=== PATIENT | female | born 1980 | race Caucasian/White ===

== ENCOUNTER 2019-09-25 17:27 | Inpatient (IN) | payer MEDICAID ==
[2019-09-25] MEDS ORDERED: RINGERS SOLUTION,LACTATED 1,000 ML IV ONE (18:50)
[2019-09-25] MEDS ORDERED: MORPHINE SULFATE 10 MG/ML INJ IV ONE (18:50)
[2019-09-25] MEDS ORDERED: ACETAMINOPHEN 325 MG TABLET PO ONE (18:50)
--- NOTE | 2019-09-25 18:51 | ER Document Report ---
ED GI/ - General Stated Complaint: ABDOMINAL PAIN Time Seen by Provider: 09/25/19 18:19 Mode of Arrival: Ambulatory Information source: Patient Notes: 39-year-old female past medical history significant for kidney stones, cervical and colorectal cancer finished chemo in April presents to the to the emergency room complaining of right lower abdominal pain for the past 4 days. Describes it as sharp and cramping. States pain has gotten worse since yesterday. Subjective fever. Was taking Naprosyn without relief. Also states that she has been having very small bowel movements for the past 4 days. Tried Colace and Epson wash without relief. Denies any nausea, vomiting, no urinary symptoms. No recent travel. No COVID-19 exposure. TRAVEL OUTSIDE OF THE [place] IN LAST 30 DAYS: No - Related Data Allergies/Adverse Reactions: No Known Allergies Allergy (Verified 09/25/19 19:49) Past Medical History - General Information source: Patient - Social History Smoking Status: Current Every Day Smoker Frequency of alcohol use: Occasional Drug Abuse: None Family History: Reviewed & Not Pertinent Malignancy Medical History: Reports: Hx Cervical Cancer, Hx Colorectal Cancer Review of Systems - Review of Systems Constitutional: Fever EENT: No symptoms reported Cardiovascular: No symptoms reported Respiratory: No symptoms reported Gastrointestinal: Abdominal pain, Constipation. denies: Nausea, Vomiting Female Genitourinary: No symptoms reported Musculoskeletal: No symptoms reported Skin: No symptoms reported Neurological/Psychological: No symptoms reported -: Yes All other systems reviewed and negative Physical Exam - Vital signs Vitals: Temp Pulse Resp BP Pulse Ox 102.2 F H 105 H 17 105/54 L 99 09/25/19 17:36 09/25/19 17:36 09/25/19 17:36 09/25/19 17:36 09/25/19 17:36 - General General appearance: Other - Ill-appearing In distress: Moderate - Respiratory Respiratory status: No respiratory distress Chest status: Nontender Breath sounds: Normal Chest palpation: Normal - Cardiovascular Rhythm: Tachycardia Heart sounds: Normal auscultation Murmur: No Friction rub: No - Abdominal Inspection: Normal Distension: No distension Bowel sounds: Hypoactive Tenderness: Tender - Generalized tenderness without guarding or rebound.. No: Guarding Organomegaly: No organomegaly - Rectal Tenderness: Yes Stool: Heme negative Hemorrhoids: None - Back Back: Normal, Nontender, CVA tenderness - Bilateral - Neurological Neuro grossly intact: Yes Cognition: Normal Orientation: AAOx4 [place] Coma Scale Eye Opening: Spontaneous [place] Coma Scale Verbal: Oriented [place] Coma Scale Motor: Obeys Commands [place] Coma Scale Total: 15 Speech: Normal Motor strength normal: LUE, RUE, LLE, RLE Sensory: Normal - Skin Skin Temperature: Warm Skin Moisture: Dry Skin Color: Normal Course - Re-evaluation Re-evalutation: 09/25/19 19:40 39-year-old female with cervical and colorectal cancer. Febrile and tachycardic on presentation. IV fluids, labs, CT, meds and reevaluate. 09/25/19 21:39 Patient's resting comfortably with decreased pain. Reviewed all test results with patient. On reexamination patient with more tenderness noted to the right lower quadrant guarding but not rebound. Negative Kevin sign. Aware of need for admission. Patient is agreeable to admission. Will discuss with on-call surgeon and hospitalist. - Vital Signs Vital signs: Temp Pulse Resp BP Pulse Ox 98.6 F 68 18 110/61 99 09/25/19 22:08 09/25/19 22:08 09/25/19 22:08 09/25/19 22:08 09/25/19 22:08 - Laboratory Result Diagrams: 09/25/19 19:15 09/25/19 19:15 Laboratory results interpreted by me: 09/25/19 09/25/19 09/25/19 19:15 19:15 19:15 WBC 15.9 H RBC 3.62 L Hgb 9.9 L Hct 29.7 L RDW 18.4 H Seg Neuts % (Manual) 89 H Lymphocytes % (Manual) 7 L Abs Neuts (Manual) 14.2 H Sodium 132.3 L Potassium 3.1 L Lactic Acid 0.6 L Calcium 8.0 L AST 114 H ALT 102 H Alkaline Phosphatase 238 H Total Protein 6.2 L Albumin 2.8 L Amylase Urine Protein Urine Ketones Urine Blood Ur Leukocyte Esterase 09/25/19 09/25/19 19:15 20:00 WBC RBC Hgb Hct RDW Seg Neuts % (Manual) Lymphocytes % (Manual) Abs Neuts (Manual) Sodium Potassium Lactic Acid Calcium AST ALT Alkaline Phosphatase Total Protein Albumin Amylase < 30 L Urine Protein 100 H Urine Ketones TRACE H Urine Blood SMALL H Ur Leukocyte Esterase MODERATE H - Consults Dr. Santiago Time consulted: 21:41 Reason for consultation: 09/25/19 22:[address] findings of proctocolitis, inflammatory ap pendix. We will see patient as inpatient. Patient will be admitted to medicine. 09/25/19 22:07 Consulted provider: will see as inpatient Dr. Desouza Time consulted: 21:46 Reason for consultation: 09/25/19 22:06 Admission for acute proctocolitis, fluid-filled colon, inflammatory appendicitis. Aware that I have spoken with on-call surgeon Dr. Santiago who will consult on patient. Consulted provider: will see as inpatient Discharge - Discharge Clinical Impression: Proctocolitis Anemia Qualifiers: Anemia type: unspecified type Qualified Code(s): D64.9 - Anemia, unspecified Leukocytosis Qualifiers: Leukocytosis type: unspecified Qualified Code(s): D72.829 - Elevated white blood cell count, unspecified Fever Qualifiers: Fever type: due to other condition Qualified Code(s): R50.81 - Fever presenting with conditions classified elsewhere Condition: Stable Disposition: ADMITTED INPATIENT Admitting Provider: Deo (Hospitalist) Unit Admitted: Medical Floor
[2019-09-25 19:54] LABS: HEMATOCRIT 29.7 % (36.0-47.0); HEMOGLOBIN 9.9 g/dL (12.0-15.5); MEAN CORPUSCULAR HEMOGLOBIN 27.4 pg (27.0-33.4); MEAN CORPUSCULAR HGB CONC 33.4 g/dL (32.0-36.0); MEAN CORPUSCULAR VOLUME 82 fl (80-97); PLATELET COUNT 301 10^3/uL (150-450); RED BLOOD COUNT 3.62 10^6/uL (3.72-5.28); RED CELL DISTRIBUTION WIDTH 18.4 % (11.5-14.0); WHITE BLOOD COUNT 15.9 10^3/uL (4.0-10.5)
[2019-09-25 20:13] LABS: ALBUMIN 2.8 g/dL (3.5-5.0); ALKALINE PHOSPHATASE 238 U/L (38-126); ANION GAP 7 (5-19); ASPARTATE AMINO TRANSFERASE 114 U/L (14-36); BILIRUBIN,DIRECT 0.3 mg/dL (0.0-0.4); BILIRUBIN,TOTAL 0.8 mg/dL (0.2-1.3); BLOOD UREA NITROGEN 10 mg/dL (7-20); CARBON DIOXIDE 23 mmol/L (22-30); CHLORIDE 102 mmol/L (98-107); GLUCOSE 100 mg/dL (75-110); POTASSIUM 3.1 mmol/L (3.6-5.0); TOTAL PROTEIN 6.2 g/dL (6.3-8.2)
[2019-09-25] MEDS ORDERED: POTASSIUM CHLORIDE 10 MEQ TABLET.ER PO ONE (20:21)
[2019-09-25 20:24] LABS: ABSOLUTE LYMPHOCYTES# (MANUAL) 1.1 10^3/uL (0.5-4.7); ABSOLUTE MONOCYTES # (MANUAL) 0.6 10^3/uL (0.1-1.4); BASOPHILS % (MANUAL) 0 % (0-2); EOSINOPHILS % (MANUAL) 0 % (0-6); LYMPHOCYTES % (MANUAL) 7 % (13-45); MONOCYTES % (MANUAL) 4 % (3-13); PLATELET COMMENT ADEQUATE; SEGMENTED NEUTROPHILS % (MAN) 89 % (42-78); TOTAL CELLS COUNTED 100
[2019-09-25 20:24] LABS: APPEARANCE,URINE CLOUDY; BILIRUBIN,URINE NEGATIVE (NEGATIVE); GLUCOSE, URINE NEGATIVE (NEGATIVE); KETONES,URINE TRACE mg/dL (NEGATIVE); LEUKOCYTE ESTERASE,URINE MODERATE (NEGATIVE); NITRITE,URINE NEGATIVE (NEGATIVE); PROTEIN,URINE 100 mg/dL (NEGATIVE); URINE SPECIFIC GRAVITY 1.024; UROBILINOGEN,URINE NEGATIVE mg/dL (<2.0)
[2019-09-25 20:25] LABS: ANISOCYTOSIS 1+
[2019-09-25 20:26] LABS: OVALOCYTES SLIGHT; POLYCHROMASIA SLIGHT
[2019-09-25 20:28] LABS: COLOR,URINE YELLOW
--- NOTE | 2019-09-25 21:04 | RADIOLOGY REPORT (SQ) ---
CT ABDOMEN PELVIS WITH IV CONTRAST HISTORY: Right lower quadrant pain. COMPARISON: None. TECHNIQUE: CT scan of the abdomen and pelvis was performed with IV contrast. This exam was performed according to our departmental dose-optimization program, which includes automated exposure control, adjustment of the mA and/or kV according to patient size and/or use of iterative reconstruction technique. FINDINGS: Mild scarring in the right lower lobe. No pleural or pericardial effusions. There is no hiatal hernia. Gallstones are seen without inflammatory changes. There is no splenomegaly. The pancreas, adrenal glands, and left kidney are unremarkable. There is mild right hydroureter likely due to inflammation in the lower quadrant. There is diffuse circumferential wall thickening with hyperenhancement predominantly involving the sigmoid colon. There is diffuse surrounding mesenteric stranding and mild free fluid. No free air is seen. The colon is fluid-filled, suggesting a diarrheal illness. The appendix is dilated, which may be due to the surrounding inflammation. The aorta is normal in caliber. No acute bony findings are seen. No abnormal body wall hernia. IMPRESSION: 1. Findings consistent with acute proctocolitis involving the sigmoid colon, which may be infectious or inflammatory in origin. 2. Fluid-filled colon suggestive of a diarrheal illness. 3. Mildly dilated appendix which is likely secondary to surrounding inflammation.
[2019-09-25 21:09] LABS: AMYLASE < 30 U/L (30-110)
[2019-09-25] MEDS ORDERED: PIPERACILLIN/TAZOBACTAM 3.375 GM VIAL IV ONE (21:40)
[2019-09-25] MEDS ORDERED: ACETAMINOPHEN 650 MG SUPP.RECT PR PRN (22:26)
[2019-09-25] MEDS ORDERED: ONDANSETRON HCL INJ/PF 4 MG/2 ML SDV IV PRN (22:26)
[2019-09-25] MEDS ORDERED: LEVALBUTEROL HCL NEB 0.63 MG/3 ML AMPUL NEB PRN (22:26)
[2019-09-25] MEDS ORDERED: LORAZEPAM INJ 2 MG/1 ML VIAL IV PRN (22:35)
[2019-09-25] MEDS ORDERED: MORPHINE SULFATE 10 MG/ML INJ IV PRN ×4 (22:35→23:03)
[2019-09-25] MEDS ORDERED: NICOTINE 21 MG/24 HR PATCH.TD24 TD PRN (22:35)
[2019-09-25] MEDS ORDERED: CEFEPIME 2 GM/D5W RTU 2 GM/50 ML RTUPB IV ONE (23:15)
[2019-09-25] MEDS ORDERED: FAMOTIDINE INJ/PF 20 MG/2 ML SDV IV ONE (23:15)
[2019-09-26] MEDS: POTASSI CL 20 MEQ/50 ML RIDER 20 MEQ/50 ML RTUPB IV SCH ×2 (01:00→03:00)
--- NOTE | 2019-09-26 01:28 | PDOC H&P ---
History of Present Illness Admission Date/PCP: 09/25/2019 22:00 No local PCP Patient complains of: Abdominal pain History of Present Illness: TATUM SIMMONS is a 39 year old female who presented to the emergency room with a 4-day history of abdominal pain. She admits the gradual development and progressive worsening of right lower quadrant and right flank pain over the course of the last 4 days. Her pain has become moderately severe, constant and is of a sharp colicky nature. Her pain has been associated with obstipation and accompanied by a subjective fever. She denies other associated or accompanying signs and symptoms. She tried using Colace and Epsom salts for her obstipation at home without any improvement. She admits prior similar episodes with previous nephrolithiasis. She has not identified any aggravating or ameliorating factors for her abdominal pain. In the emergency room she was found to have a fever of 102.2 F, a heart rate of 105, a white blood count of 15,900 and mildly elevated liver function tests. A CT of her abdomen and pelvis revealed a sigmoid proctocolitis and a dilated appendix with periappendiceal inflammatory changes. The emergency room provider consulted Dr. Santiago for surgery who asked that the patient be admitted by the hospitalists, and he would further evaluate her in the morning. Patient was subsequently admitted to the medical floor for further evaluation and treatment. Past Medical History Cardiac Medical History: Denies: Coronary Artery Disease, DVT, Hypertension, Pulmonary Embolism Pulmonary Medical History: Reports: Asthma Denies: Chronic Obstructive Pulmonary Disease (COPD) EENT Medical History: Denies: Cataracts, Ears - Hearing aids Neurological Medical History: Denies: Hemorrhagic CVA, Ischemic CVA, Multiple Sclerosis, Seizures Endocrine Medical History: Reports: Other - Hypoglycemia Denies: Diabetes Mellitus Type 1, Diabetes Mellitus Type 2, Hyperthyroidism, Hypothyroidism, Obesity Renal/ Medical History: Reports: Nephrolithiasis Denies: Chronic Kidney Disease Malignancy Medical History: Reports: Cervical Cancer, Colorectal Cancer Malignancy History Note: Patient states that she finished chemotherapy for cervical cancer and colorectal cancer in April 2019. GI Medical History: Denies: Cirrhosis, Crohn's Disease, Gastroesophageal Reflux Disease, H epatitis, Peptic Ulcer Disease, Ulcerative Colitis Musculoskeltal Medical History: Denies: Arthritis, Fibromyalgia Skin Medical History: Denies: Eczema, Psoriasis Psychiatric Medical History: Reports: Tobacco Dependency Denies: Alcohol Dependency, Substance Abuse Traumatic Medical History: Reports: None Hematology: Reports: Anemia Denies: Bleeding Tendencies Infectious Medical History: Reports: None Past Surgical History Past Surgical History: Reports: Tonsillectomy, Other - Left tube nephrostomy, c olonoscopy with polypectomy Social History Information Source: Patient Lives with: Alone Smoking Status: Current Every Day Smoker Cigarettes Packs Per Day: 0.2 Electronic Cigarette use?: No Frequency of Alcohol Use: Rare Hx Recreational Drug Use: No Drugs: None Hx Prescription Drug Abuse: No - Advance Directive Resuscitation Status: Full Code Surrogate healthcare decision maker:: Perri Gisela Family History Family History: CAD, Hyperlipidemia, Hypertension, Malignancy, Other - Valvular heart disease. denies: DM Parental Family History Reviewed: Yes Children Family History Reviewed: No Sibling(s) Family History Reviewed.: Yes Medication/Allergy Allergies/Adverse Reactions: No Known Allergies Allergy (Verified 09/25/19 19:49) Review of Systems Constitutional: PRESENT: as per HPI, fever(s). ABSENT: chills Eyes: ABSENT: visual disturbances, other - Eye pain Ears: ABSENT: hearing changes, other - Ear pain Nose, Mouth, and Throat: ABSENT: headache(s), sore throat Cardiovascular: ABSENT: chest pain, palpitations Respiratory: ABSENT: cough, dyspnea Gastrointestinal: PRESENT: as per HPI, abdominal pain, constipation - With obstipation. ABSENT: diarrhea, nausea, vomiting Genitourinary: ABSENT: dysuria, hematuria Musculoskeletal: ABSENT: joint swelling, muscle weakness Integumentary: ABSENT: pruritus, rash Neurological: ABSENT: confusion, convulsions, focal weakness, memory loss, syncope Psychiatric: ABSENT: anxiety, depression Endocrine: ABSENT: cold intolerance, heat intolerance Hematologic/Lymphatic: ABSENT: easy bleeding, easy bruising Allergic/Immunologic: ABSENT: seasonal rhinorrhea Physical Exam Vital Signs: Temp Pulse Resp BP Pulse Ox 98.7 F 105 H 17 105/54 L 99 09/25/19 20:59 09/25/19 17:36 09/25/19 17:36 09/25/19 17:36 09/25/19 17:36 Intake & Output 09/23/19 09/24/19 09/25/19 23:59 23:59 23:59 Intake Total 1000 Balance 1000 Weight 79.379 kg General appearance: PRESENT: cooperative, mild distress - Secondary to abdominal pain Head exam: PRESENT: atraumatic, normocephalic Eye exam: PRESENT: conjunctiva pink. ABSENT: conjunctival injection, scleral icterus Ear exam: PRESENT: normal external ear exam. ABSENT: bleeding, drainage Mouth exam: PRESENT: dry mucosa, neck supple Neck exam: ABSENT: thyromegaly, tracheal deviation Respiratory exam: PRESENT: clear to auscultation stan, symmetrical, unlabored Cardiovascular exam: PRESENT: RRR. ABSENT: clicks, gallop, rubs Pulses: PRESENT: normal radial pulses, normal dorsalis pedis pul Vascular exam: PRESENT: normal capillary refill. ABSENT: pallor GI/Abdominal exam: PRESENT: hypoactive bowel sounds, soft, tenderness - Generalized moderate to severe tenderness in the lower abdomen and right anterior flank on palpation Rectal exam: PRESENT: deferred Extremities exam: ABSENT: joint swelling, pedal edema Musculoskeletal exam: ABSENT: deformity, dislocation Neurological exam: PRESENT: alert, oriented to person, oriented to place, oriented to time, oriented to situation, CN II-XII grossly intact. ABSENT: motor sensory deficit Psychiatric exam: PRESENT: appropriate affect, normal mood Skin exam: PRESENT: dry, intact, warm. ABSENT: jaundice, rash, urticaria Results Laboratory Results: 09/25/19 19:15 09/25/19 19:15 09/25/19 09/25/19 09/25/19 19:15 19:15 19:15 WBC 15.9 H RBC 3.62 L Hgb 9.9 L Hct 29.7 L MCV 82 MCH 27.4 MCHC 33.4 RDW 18.4 H Plt Count 301 Seg Neutrophils % Not Reportable Sodium 132.3 L Potassium 3.1 L Chloride 102 Carbon Dioxide 23 Anion Gap 7 BUN 10 Creatinine 0.86 Est GFR ( Amer) > 60 Glucose 100 Lactic Acid 0.6 L Calcium 8.0 L Magnesium Total Bilirubin 0.8 AST 114 H Alkaline Phosphatase 238 H Total Protein 6.2 L Albumin 2.8 L Amylase Lipase Serum HCG, Qual Urine Color Urine Appearance Urine pH Ur Specific [place] Urine Protein Urine Glucose (UA) Urine Ketones Urine Blood Urine Nitrite Ur Leukocyte Esterase Urine WBC (Auto) Urine RBC (Auto) 09/25/19 09/25/19 09/25/19 19:15 19:15 19:15 WBC RBC Hgb Hct MCV MCH MCHC RDW Plt Count Seg Neutrophils % Sodium Potassium Chloride Carbon Dioxide Anion Gap BUN Creatinine Est GFR ( Amer) Glucose Lactic Acid Calcium Magnesium 2.1 Total Bilirubin AST Alkaline Phosphatase Total Protein Albumin Amylase < 30 L Lipase 68.3 Serum HCG, Qual NEGATIVE Urine Color Urine Appearance Urine pH Ur Specific [place] Urine Protein Urine Glucose (UA) Urine Ketones Urine Blood Urine Nitrite Ur Leukocyte Esterase Urine WBC (Auto) Urine RBC (Auto) 09/25/19 20:00 WBC RBC Hgb Hct MCV MCH MCHC RDW Plt Count Seg Neutrophils % Sodium Potassium Chloride Carbon Dioxide Anion Gap BUN Creatinine Est GFR ( Amer) Glucose Lactic Acid Calcium Magnesium Total Bilirubin AST Alkaline Phosphatase Total Protein Albumin Amylase Lipase Serum HCG, Qual Urine Color YELLOW Urine Appearance CLOUDY Urine pH 5.0 Ur Specific [place] 1.024 Urine Protein 100 H Urine Glucose (UA) NEGATIVE Urine Ketones TRACE H Urine Blood SMALL H Urine Nitrite NEGATIVE Ur Leukocyte Esterase MODERATE H Urine WBC (Auto) 101 Urine RBC (Auto) 20 Impressions: Abdomen/Pelvis CT 09/25/19 18:48 IMPRESSION: 1. Findings consistent with acute proctocolitis involving the sigmoid colon, which may be infectious or inflammatory in origin. 2. Fluid-filled colon suggestive of a diarrheal illness. 3. Mildly dilated appendix which is likely secondary to surrounding inflammation. Assessment and Plan - Diagnosis (1) Proctocolitis Is this a current diagnosis for this admission?: Yes (2) Abnormal computed tomography angiography (CTA) of abdomen and pelvis Is this a current diagnosis for this admission?: Yes (3) Leukocytosis Qualifiers: Leukocytosis type: unspecified Qualified Code(s): D72.829 - Elevated white blood cell count, unspecified Is this a current diagnosis for this admission?: Yes (4) Fever Qualifiers: Fever type: due to other condition Qualified Code(s): R50.81 - Fever presenting with conditions classified elsewhere Is this a current diagnosis for this admission?: Yes (5) History of colorectal cancer Is this a current diagnosis for this admission?: Yes (6) History of cervical cancer Is this a current diagnosis for this admission?: Yes (7) Anemia Qualifiers: Anemia type: unspecified type Qualified Code(s): D64.9 - Anemia, unspecified Is this a current diagnosis for this admission?: Yes (8) Tobacco use disorder, continuous Is this a current diagnosis for this admission?: Yes - Plan Summary Summary: Patient will be admitted to the medical floor where she will receive routine supportive and symptomatic cares. Dr. Santiago has been consulted by the emergency room provider and will see the patient in the morning. She will be kept n.p.o. after midnight. She will receive IV fluids utilizing D5 LR at 167 mL/h. She will receive IV antibiotics utilizing cefepime 2 g IV every 12 hours. She will receive morphine sulfate 2 to 4 mg IV every 2 hours as needed for pain. She will receive Ativan 1 mg IV every 4 hours as needed for anxiety or restlessness. CBCs, metabolic profiles, liver function tests, magnesium levels and additional laboratory and/or radiographic evaluations will be obtained as appropriate. Smoking cessation is advised and counseled briefly at the bedside. A nicotine replacement patch is available for the patient's use, if desired. - Time Time Spent with patient: 15-24 minutes Smoking Cessation Education: 3 to 10 minutes Medications reviewed and adjusted accordingly: Yes Anticipated Discharge Disposition: Home, Self Care Anticipated Discharge Timeframe: Undetermined - Inpatient Certification Based on my medical assessment, after consideration of the patient's comorbidities, presenting symptoms, or acuity I expect that the services needed warrant INPATIENT care.: Yes I certify that my determination is in accordance with my understanding of Medicare's requirements for reasonable and necessary INPATIENT services [42 CFR 412.3e].: Yes Medical Necessity: Significant Comorbidiites Make Outpatient Treatment Too Risky, Need Close Monitoring Due to Risk of Patient Decompensation, Need For IV Fluids, Need for Pain Control, Need for IV Antibiotics, Risk of Complication if Not Cared For in Hospital, Risk of Diagnosis Which Will Require Inpatient Eval/Care/Monitoring
[2019-09-26] MEDS: DEXTROSE 5%-LACTATED RINGERS 1,000 ML IV PRN ×2 (05:32→11:58)
[2019-09-26] MEDS: HEPARIN SOD (PORCINE) 5,000 UNIT/ML 1 ML VIAL SUBCUT SCH ×3 (05:34→21:28)
--- NOTE | 2019-09-26 06:44 | PDOC CONSULTATION ---
Consultation Consult Date: 09/26/19 Provider Consulted: SURGICAL SURGICALIST MD Consult reason:: Lower abdominal pain, fevers, diarrhea, proctocolitis on CT scan. History of Present Illness Admission Date/PCP: 09/25/19 22:35 History of Present Illness: TATUM SIMMONS is a 39 year old female seen in consultation at the request of the hospitalist service. This is a patient was approximately 3 to 4 months status post chemo and radiation to the pelvis for cervical cancer. Her symptoms began approximately 4 days ago. She began having watery diarrhea. Approximately 48 hours ago (2 days after symptoms began), she began having sharp, stabbing pelvic and right lower quadrant pain that radiated to her back. She rated her pain is 10 out of 10. She took laxatives in an attempt to relieve the pain, however they did not help. She began having fevers and chills at home. She then presented to the hospital for evaluation. After admission, the patient reports her right lower quadrant pain has completely subsided. The majority of her pain is in her suprapubic pelvic and left lower quadrant regions. She denies melena, hematochezia, nausea, vomiting, hematemesis. She has no personal history of ulcerative colitis or Crohn's disease. She has no family history of inflammatory bowel disease. Past Medical History Cardiac Medical History: Denies: Coronary Artery Disease, DVT, Hypertension, Pulmonary Embolism Pulmonary Medical History: Reports: Asthma Denies: Chronic Obstructive Pulmonary Disease (COPD) EENT Medical History: Denies: Cataracts, Ears - Hearing aids Neurological Medical History: Denies: Hemorrhagic CVA, Ischemic CVA, Multiple Sclerosis, Seizures Endocrine Medical History: Reports: Other - Hypoglycemia Denies: Diabetes Mellitus Type 1, Diabetes Mellitus Type 2, Hyperthyroidism, Hypothyroidism, Obesity Renal/ Medical History: Reports: Nephrolithiasis Denies: Chronic Kidney Disease Malignancy Medical History: Reports: Cervical Cancer, Colorectal Cancer GI Medical History: Denies: Cirrhosis, Crohn's Disease, Gastroesophageal Reflux Disease, Hepatitis, Peptic Ulcer Disease, Ulcerative Colitis Musculoskeltal Medical History: Denies: Arthritis, Fibromyalgia Skin Medical History: Denies: Eczema, Psoriasis Psychiatric Medical History: Reports: Tobacco Dependency Denies: Alcohol Dependency, Depression, Substance Abuse Traumatic Medical History: Reports: None Hematology: Reports: Anemia Denies: Bleeding Tendencies Infectious Medical History: Reports: None Past Surgical History Past Surgical History: Reports: Tonsillectomy, Other - Left tube nephrostomy, colonoscopy with polypectomy Social History Lives with: Alone Smoking Status: Current Every Day Smoker Cigarettes Packs Per Day: 0.2 Electronic Cigarette use?: No Number of Years Smokin Last Time Smoked: yesterday morning around 08:30am Frequency of Alcohol Use: Rare Hx Recreational Drug Use: No Drugs: None Hx Prescription Drug Abuse: No - Advance Directive Resuscitation Status: Full Code Family History Family History: CAD, Hyperlipidemia, Hypertension, Malignancy, Other - Valvular heart disease. denies: DM Parental Family History Reviewed: Yes Children Family History Reviewed: Yes Sibling(s) Family History Reviewed.: Yes Medication/Allergy Allergies/Adverse Reactions: No Known Allergies Allergy (Verified 09/25/19 19:49) Review of Systems Constitutional: PRESENT: chills, fatigue, fever(s). ABSENT: weakness Eyes: ABSENT: visual disturbances Ears: ABSENT: hearing changes Nose, Mouth, and Throat: ABSENT: sore throat Cardiovascular: ABSENT: chest pain Respiratory: ABSENT: cough, dyspnea Gastrointestinal: PRESENT: abdominal pain, bloating. ABSENT: hematemesis, hematochezia, melena, nausea, vomiting Genitourinary: ABSENT: dysuria Musculoskeletal: PRESENT: back pain Integumentary: ABSENT: pruritus, rash Neurological: ABSENT: confusion, convulsions, dizziness Psychiatric: PRESENT: anxiety Endocrine: ABSENT: cold intolerance, heat intolerance Hematologic/Lymphatic: ABSENT: easy bleeding, easy bruising Physical Exam Vital Signs: Temp Pulse Resp BP Pulse Ox 98.6 F 88 14 104/49 L 94 09/25/19 23:39 09/26/19 01:04 09/26/19 01:04 09/26/19 01:04 09/25/19 23:39 Intake & Output 09/24/19 09/25/19 09/26/19 06:59 06:59 06:59 Intake Total 1050 Balance 1050 Weight 78 kg General appearance: PRESENT: no acute distress, cooperative Head exam: PRESENT: atraumatic, normocephalic Eye exam: PRESENT: EOMI, PERRLA. ABSENT: scleral icterus Mouth exam: PRESENT: neck supple Neck exam: ABSENT: meningismus, tenderness, thyromegaly, tracheal deviation Cardiovascular exam: ABSENT: tachycardia GI/Abdominal exam: PRESENT: guarding - Voluntary guarding in the suprapubic area, soft, tenderness - Suprapubic and left lower quadrant tenderness, mild. No right lower quadrant tenderness. No tenderness at McBurney's point.. ABSENT: distended, firm, rebound, rigid Rectal exam: PRESENT: deferred Extremities exam: ABSENT: clubbing Musculoskeletal exam: ABSENT: deformity Neurological exam: PRESENT: alert, awake, oriented to person, oriented to place, oriented to time, oriented to situation, CN II-XII grossly intact. ABSENT: motor sensory deficit Psychiatric exam: ABSENT: agitated, anxious, depressed Focused psych exam: ABSENT: delusional Skin exam: ABSENT: cyanosis, erythema, jaundice Results Laboratory Results: 09/25/19 19:15 09/25/19 19:15 09/25/19 09/25/19 09/25/19 19:15 19:15 19:15 WBC 15.9 H RBC 3.62 L Hgb 9.9 L Hct 29.7 L MCV 82 MCH 27.4 MCHC 33.4 RDW 18.4 H Plt Count 301 Seg Neutrophils % Not Reportable Sodium 132.3 L Potassium 3.1 L Chloride 102 Carbon Dioxide 23 Anion Gap 7 BUN 10 Creatinine 0.86 Est GFR ( Amer) > 60 Glucose 100 Lactic Acid 0.6 L Calcium 8.0 L Magnesium Total Bilirubin 0.8 AST 114 H Alkaline Phosphatase 238 H Total Protein 6.2 L Albumin 2.8 L Amylase Lipase TSH Serum HCG, Qual Urine Color Urine Appearance Urine pH Ur Specific [place] Urine Protein Urine Glucose (UA) Urine Ketones Urine Blood Urine Nitrite Ur Leukocyte Esterase Urine WBC (Auto) Urine RBC (Auto) 09/25/19 09/25/19 09/25/19 19:15 19:15 19:15 WBC RBC Hgb Hct MCV MCH MCHC RDW Plt Count Seg Neutrophils % Sodium Potassium Chloride Carbon Dioxide Anion Gap BUN Creatinine Est GFR ( Amer) Glucose Lactic Acid Calcium Magnesium 2.1 Total Bilirubin AST Alkaline Phosphatase Total Protein Albumin Amylase < 30 L Lipase 68.3 TSH Serum HCG, Qual NEGATIVE Urine Color Urine Appearance Urine pH Ur Specific [place] Urine Protein Urine Glucose (UA) Urine Ketones Urine Blood Urine Nitrite Ur Leukocyte Esterase Urine WBC (Auto) Urine RBC (Auto) 09/25/19 09/25/19 09/25/19 19:15 20:00 23:02 WBC RBC Hgb Hct MCV MCH MCHC RDW Plt Count Seg Neutrophils % Sodium Potassium Chloride Carbon Dioxide Anion Gap BUN Creatinine Est GFR ( Amer) Glucose Lactic Acid 0.7 Calcium Magnesium Total Bilirubin AST Alkaline Phosphatase Total Protein Albumin Amylase Lipase TSH 1.13 Serum HCG, Qual Urine Color YELLOW Urine Appearance CLOUDY Urine pH 5.0 Ur Specific [place] 1.024 Urine Protein 100 H Urine Glucose (UA) NEGATIVE Urine Ketones TRACE H Urine Blood SMALL H Urine Nitrite NEGATIVE Ur Leukocyte Esterase MODERATE H Urine WBC (Auto) 101 Urine RBC (Auto) 20 Impressions: Abdomen/Pelvis CT 09/25/19 18:48 IMPRESSION: 1. Findings consistent with acute proctocolitis involving the sigmoid colon, which may be infectious or inflammatory in origin. 2. Fluid-filled colon suggestive of a diarrheal illness. 3. Mildly dilated appendix which is likely secondary to surrounding inflammation. Assessment & Plan - Diagnosis (1) Proctocolitis Is this a current diagnosis for this admission?: Yes - Plan Summary Plan Summary: This is a 39-year-old female admitted with proctocolitis, diarrhea, fevers, chills, and lower abdominal pain. There was a question on the CT regarding "appendiceal dilation and periappendiceal thickening". The primary focus of the inflammatory response is in and around the sigmoid colon and rectum. The appendix is lying adjacent to the structures, and is involved in the inflammation, but does not appear to be the source of the inflammation. Although it is technically possible, the patient's physical exam and history are inconsistent with appendicitis. The patient has a history of recent radiation to the pelvis (3 to 4 months ago). Her differential includes radiation proctitis, infectious colitis/proctitis, diverticulitis, inflammatory bowel disease. At this time, I would recommend supportive care. Continue antibiotics. The patient does not have signs of a surgical abdomen. Her tenderness is minimal. She does not have rebound or peritonitis. If her symptoms worsen, or fail to resolve, a laparoscopic exploration may be indicated. I would treat with antibiotics and repeat imaging first. Surgery will follow.
[2019-09-26 07:22] LABS: HEMOGLOBIN 8.4 g/dL (12.0-15.5); MEAN CORPUSCULAR HEMOGLOBIN 27.7 pg (27.0-33.4); MEAN CORPUSCULAR HGB CONC 33.8 g/dL (32.0-36.0); MEAN CORPUSCULAR VOLUME 82 fl (80-97); PLATELET COUNT 201 10^3/uL (150-450); RED BLOOD COUNT 3.05 10^6/uL (3.72-5.28); RED CELL DISTRIBUTION WIDTH 18.8 % (11.5-14.0); WHITE BLOOD COUNT 9.7 10^3/uL (4.0-10.5)
[2019-09-26 07:39] LABS: ALBUMIN 2.2 g/dL (3.5-5.0); ALKALINE PHOSPHATASE 169 U/L (38-126); ASPARTATE AMINO TRANSFERASE 53 U/L (14-36); BILIRUBIN,DIRECT 0.1 mg/dL (0.0-0.4); BILIRUBIN,TOTAL 0.4 mg/dL (0.2-1.3); BLOOD UREA NITROGEN 9 mg/dL (7-20); CALCIUM 7.6 mg/dL (8.4-10.2); CARBON DIOXIDE 22 mmol/L (22-30); GLUCOSE 113 mg/dL (75-110); POTASSIUM 3.5 mmol/L (3.6-5.0); TOTAL PROTEIN 5.1 g/dL (6.3-8.2)
[2019-09-26 07:43] LABS: ANION GAP 5 (5-19); CHLORIDE 110 mmol/L (98-107)
[2019-09-26] MEDS: FAMOTIDINE INJ/PF 20 MG/2 ML SDV IV SCH ×2 (09:29→21:29)
[2019-09-26] MEDS: CEFEPIME HCL 2 GM in DEXTROSE 5%-WATER 50 ML IV SCH ×2 (09:29→21:24)
[2019-09-26] MEDS ORDERED: CEFEPIME 2 GM/D5W RTU 2 GM/50 ML RTUPB IV SCH (10:00)
[2019-09-26] MEDS ORDERED: KETOROLAC TROMETHAMINE INJ/PF 30 MG/1 ML SDV IV PRN (10:28)
[2019-09-26] MEDS ORDERED: ONDANSETRON HCL INJ/PF 4 MG/2 ML SDV IV PRN (13:00)
[2019-09-26] MEDS ORDERED: LORAZEPAM INJ 2 MG/1 ML VIAL IV ONE (16:20)
--- NOTE | 2019-09-26 17:06 | PDOC PROGRESS REPORT ---
Subjective Progress Note for:: 09/26/19 Subjective:: TATUM SIMMONS is a 39 year old female who presented to the emergency room with a 4-day history of abdominal pain. She admits the gradual development and progressive worsening of right lower quadrant and right flank pain over the course of the last 4 days. Her pain has become moderately severe, constant and is of a sharp colicky nature. Her pain has been associated with obstipation and accompanied by a subjective fever. She denies other associated or accompanying signs and symptoms. She tried using Colace and Epsom salts for her obstipation at home without any improvement. She admits prior similar episodes with previous nephrolithiasis. She has not identified any aggravating or ameliorating factors for her abdominal pain. In the emergency room she was found to have a fever of 102.2 F, a heart rate of 105, a white blood count of 15,900 and mildly elevated liver function tests. A CT of her abdomen and pelvis revealed a sigmoid proctocolitis and a dilated appendix with periappendiceal inflammatory changes. The emergency room provider consulted Dr. Santiago for surgery who asked that the patient be admitted by the hospitalists, and he would further evaluate her in the morning. Patient was subsequently admitted to the medical floor for further evaluation and treatment. 09/26/2019. Saw patient this evening, in no apparent distress but unfortunately patient is crying and stating that she feels lonely, abdominal pain is improving, she is p.o. tolerant and has had some watery bowel movements, denies any fever, chills, chest pain, nausea, vomiting or any urinary symptoms. Patient stating that her family is in [place] and she feels very lonely when asked if she is depressed she says she is depressed but she has no homicidal or suicidal ideation. Reason For Visit: ACUTE PROCTOCOLITIS,APPENDICEAL DILATATION WITH Physical Exam Vital Signs: Temp Pulse Resp BP Pulse Ox 98.6 F 80 16 104/49 L 97 09/25/19 23:39 09/26/19 16:30 09/26/19 16:30 09/26/19 01:04 09/26/19 16:30 Intake & Output 09/25/19 09/26/19 09/27/19 06:59 06:59 06:59 Intake Total 1050 1050 Balance 1050 1050 Weight 78 kg General appearance: PRESENT: no acute distress, well-developed, well-nourished Head exam: PRESENT: atraumatic, normocephalic Respiratory exam: PRESENT: clear to auscultation stan. ABSENT: rales, rhonchi, wheezes Cardiovascular exam: PRESENT: RRR. ABSENT: diastolic murmur, rubs, systolic murmur GI/Abdominal exam: PRESENT: normal bowel sounds, soft, tenderness. ABSENT: distended, guarding, mass, organolmegaly, rebound Neurological exam: PRESENT: alert, awake, oriented to person, oriented to place, oriented to time, oriented to situation, CN II-XII grossly intact. ABSENT: motor sensory deficit Psychiatric exam: PRESENT: anxious, depressed Results Laboratory Results: 09/26/19 07:04 09/26/19 07:04 09/25/19 09/25/19 09/25/19 19:15 19:15 19:15 WBC 15.9 H RBC 3.62 L Hgb 9.9 L Hct 29.7 L MCV 82 MCH 27.4 MCHC 33.4 RDW 18.4 H Plt Count 301 Seg Neutrophils % Not Reportable Sodium 132.3 L Potassium 3.1 L Chloride 102 Carbon Dioxide 23 Anion Gap 7 BUN 10 Creatinine 0.86 Est GFR ( Amer) > 60 Glucose 100 Lactic Acid 0.6 L Calcium 8.0 L Magnesium Total Bilirubin 0.8 AST 114 H Alkaline Phosphatase 238 H Total Protein 6.2 L Albumin 2.8 L Amylase Lipase TSH Serum HCG, Qual Urine Color Urine Appearance Urine pH Ur Specific [place] Urine Protein Urine Glucose (UA) Urine Ketones Urine Blood Urine Nitrite Ur Leukocyte Esterase Urine WBC (Auto) Urine RBC (Auto) 09/25/19 09/25/19 09/25/19 19:15 19:15 19:15 WBC RBC Hgb Hct MCV MCH MCHC RDW Plt Count Seg Neutrophils % Sodium Potassium Chloride Carbon Dioxide Anion Gap BUN Creatinine Est GFR ( Amer) Glucose Lactic Acid Calcium Magnesium 2.1 Total Bilirubin AST Alkaline Phosphatase Total Protein Albumin Amylase < 30 L Lipase 68.3 TSH Serum HCG, Qual NEGATIVE Urine Color Urine Appearance Urine pH Ur Specific [place] Urine Protein Urine Glucose (UA) Urine Ketones Urine Blood Urine Nitrite Ur Leukocyte Esterase Urine WBC (Auto) Urine RBC (Auto) 09/25/19 09/25/19 09/25/19 19:15 20:00 23:02 WBC RBC Hgb Hct MCV MCH MCHC RDW Plt Count Seg Neutrophils % Sodium Potassium Chloride Carbon Dioxide Anion Gap BUN Creatinine Est GFR ( Amer) Glucose Lactic Acid 0.7 Calcium Magnesium Total Bilirubin AST Alkaline Phosphatase Total Protein Albumin Amylase Lipase TSH 1.13 Serum HCG, Qual Urine Color YELLOW Urine Appearance CLOUDY Urine pH 5.0 Ur Specific [place] 1.024 Urine Protein 100 H Urine Glucose (UA) NEGATIVE Urine Ketones TRACE H Urine Blood SMALL H Urine Nitrite NEGATIVE Ur Leukocyte Esterase MODERATE H Urine WBC (Auto) 101 Urine RBC (Auto) 20 09/26/19 09/26/19 07:04 07:04 WBC 9.7 RBC 3.05 L Hgb 8.4 L Hct 25.0 L MCV 82 MCH 27.7 MCHC 33.8 RDW 18.8 H Plt Count 201 Seg Neutrophils % Sodium 137.1 Potassium 3.5 L Chloride 110 H Carbon Dioxide 22 Anion Gap 5 BUN 9 Creatinine 0.73 Est GFR ( Amer) > 60 Glucose 113 H Lactic Acid Calcium 7.6 L Magnesium 2.0 Total Bilirubin 0.4 AST 53 H Alkaline Phosphatase 169 H Total Protein 5.1 L Albumin 2.2 L Amylase Lipase TSH Serum HCG, Qual Urine Color Urine Appearance Urine pH Ur Specific [place] Urine Protein Urine Glucose (UA) Urine Ketones Urine Blood Urine Nitrite Ur Leukocyte Esterase Urine WBC (Auto) Urine RBC (Auto) Impressions: Abdomen/Pelvis CT 09/25/19 18:48 IMPRESSION: 1. Findings consistent with acute proctocolitis involving the sigmoid colon, which may be infectious or inflammatory in origin. 2. Fluid-filled colon suggestive of a diarrheal illness. 3. Mildly dilated appendix which is likely secondary to surrounding inflammation. Assessment and Plan - Diagnosis (1) Proctocolitis Is this a current diagnosis for this admission?: Yes Plan: Given history of recent chemoradiation for underlying cervical and colorectal cancer radiation-induced proctocolitis is a possibility, however infectious colitis could not be ruled out. CT abdomen positive for proctocolitis. Surgery has been consulted but no intervention is recommended, conservative management is recommended. Continue empiric IV antibiotics, monitor volume status and electrolytes replace as needed, stool culture, C. difficile toxin, stool WBC, stool ova and parasite. (2) Anemia Qualifiers: Anemia type: iron deficiency Qualified Code(s): D64.9 - Anemia, unspecified Is this a current diagnosis for this admission?: Yes Plan: We will check iron panel. Likely due to underlying malignancy. Check stool guaiac. Monitor H&H, supportive transfusions. (3) History of cervical cancer Is this a current diagnosis for this admission?: Yes Plan: Status post chemoradiation last chemoradiation in April 2019. Outpatient PCP and oncology follow-up. (4) History of colorectal cancer Is this a current diagnosis for this admission?: Yes Plan: Status post chemoradiation last chemoradiation in April 2019. Outpatient PCP and oncology follow-up. (5) Tobacco use disorder, continuous Is this a current diagnosis for this admission?: Yes Plan: Counseled on quitting. NicoDerm patch will be provided. (6) Depression Is this a current diagnosis for this admission?: Yes Plan: Denies any homicidal or suicidal ideation. Will start on Lexapro. Outpatient PCP follow-up. - Plan Summary Summary: Patient will be admitted to the medical floor where she will receive routine supportive and symptomatic cares. Dr. Santiago has been consulted by the emergency room provider and will see the patient in the morning. She will be kept n.p.o. after midnight. She will receive IV fluids utilizing D5 LR at 167 mL/h. She will receive IV antibiotics utilizing cefepime 2 g IV every 12 hours. She will receive morphine sulfate 2 to 4 mg IV every 2 hours as needed for pain. She will receive Ativan 1 mg IV every 4 hours as needed for anxiety or re stlessness. CBCs, metabolic profiles, liver function tests, magnesium levels and additional laboratory and/or radiographic evaluations will be obtained as appropriate. Smoking cessation is advised and counseled briefly at the bedside. A nicotine replacement patch is available for the patient's use, if desired. - Time Time Spent with patient: 25-34 minutes Smoking Cessation Education: 3 to 10 minutes Medications reviewed and adjusted accordingly: Yes Anticipated Discharge Disposition: Home, Self Care Anticipated Discharge Timeframe: within 36 hours
[2019-09-26] MEDS: ESCITALOPRAM OXALATE 10 MG TABLET PO SCH (18:24)
[2019-09-27 01:50] LABS: C DIFFICILE GDH NEGATIVE (NEGATIVE)
[2019-09-27] MEDS: HEPARIN SOD (PORCINE) 5,000 UNIT/ML 1 ML VIAL SUBCUT SCH ×2 (05:39→14:27)
[2019-09-27 06:48] LABS: ABSOLUTE RETICS # 0.024 10^6/uL (0.028-0.122); HEMATOCRIT 23.2 % (36.0-47.0); MEAN CORPUSCULAR HEMOGLOBIN 27.8 pg (27.0-33.4); MEAN CORPUSCULAR HGB CONC 33.5 g/dL (32.0-36.0); MEAN CORPUSCULAR VOLUME 83 fl (80-97); PLATELET COUNT 221 10^3/uL (150-450); RED CELL DISTRIBUTION WIDTH 18.7 % (11.5-14.0); RETICULOCYTE COUNT (AUTO) 0.84 % (0.66-2.85); WHITE BLOOD COUNT 5.9 10^3/uL (4.0-10.5)
[2019-09-27 06:52] LABS: HEMOGLOBIN 7.8 g/dL (12.0-15.5)
[2019-09-27 07:14] LABS: IRON(TIBC) 15.1 ug/dL (37-170)
--- NOTE | 2019-09-27 08:54 | PDOC PROGRESS REPORT ---
Subjective Progress Note for:: 09/27/19 Subjective:: proctitits Reason For Visit: ACUTE PROCTOCOLITIS,APPENDICEAL DILATATION WITH Physical Exam Vital Signs: Temp Pulse Resp BP Pulse Ox 98.2 F 72 14 102/55 L 100 09/27/19 08:36 09/27/19 08:36 09/27/19 08:36 09/27/19 08:36 09/27/19 08:36 Intake & Output 09/26/19 09/27/19 09/28/19 06:59 06:59 06:59 Intake Total 1050 1850 Balance 1050 1850 Weight 78 kg 78 kg General appearance: PRESENT: no acute distress Head exam: PRESENT: normocephalic Eye exam: PRESENT: EOMI Ear exam: PRESENT: normal external ear exam Mouth exam: PRESENT: moist Neck exam: PRESENT: full ROM Respiratory exam: PRESENT: clear to auscultation stan Cardiovascular exam: PRESENT: RRR Pulses: PRESENT: normal femoral pulses Vascular exam: PRESENT: normal capillary refill Breast: PRESENT: Normal GI/Abdominal exam: PRESENT: soft Rectal exam: PRESENT: deferred Musculoskeletal exam: PRESENT: ambulatory Neurological exam: PRESENT: alert, awake, oriented to person, oriented to place Psychiatric exam: PRESENT: appropriate affect Skin exam: PRESENT: dry Results Laboratory Results: 09/27/19 06:27 09/26/19 07:04 09/26/19 09/27/19 09/27/19 21:18 06:27 06:27 WBC 5.9 RBC 2.80 L Hgb 7.8 L Hct 23.2 L MCV 83 MCH 27.8 MCHC 33.5 RDW 18.7 H Plt Count 221 Retic Count (auto) 0.84 Iron 15.1 L TIBC 187 L % Saturation 8 Ferritin 82.50 Vitamin B12 910.0 Folate 3.70 Stool for White Cells MANY H Impressions: Abdomen/Pelvis CT 09/25/19 18:48 IMPRESSION: 1. Findings consistent with acute proctocolitis involving the sigmoid colon, which may be infectious or inflammatory in origin. 2. Fluid-filled colon suggestive of a diarrheal illness. 3. Mildly dilated appendix which is likely secondary to surrounding inflammation. Assessment & Plan - Time Time Spent: 50 to 70 Minutes Critical Time spent with patient: 25-34 minutes Medications reviewed and adjusted accordingly: No Anticipated Discharge Disposition: unk Anticipated Discharge Timeframe: unk - Plan Summary Plan Summary: admitted with anemia and lower abd pain. pt with recent chemo/rt for cervical cancer ct c/w radiation proctitis this am pain has resolved no bleeding per rectum bm this am joce diet no indiciation fur surgical interventiion at this time surgery will sign off \pleas reconsujlt if necessary.
[2019-09-27] MEDS: CEFEPIME HCL 2 GM in DEXTROSE 5%-WATER 50 ML IV SCH (09:43)
[2019-09-27] MEDS: FAMOTIDINE INJ/PF 20 MG/2 ML SDV IV SCH (09:44)
[2019-09-27] MEDS: ESCITALOPRAM OXALATE 10 MG TABLET PO SCH (09:44)
[2019-09-27] MEDS: DEXTROSE 5%-LACTATED RINGERS 1,000 ML IV PRN (09:52)
[2019-09-27] MEDS ORDERED: FERRIC CARBOXYMALTOSE INJ 750 MG/15 ML VIAL IV PRN (09:56)
[2019-09-27] MEDS ORDERED: FERROUS SULFATE 325 MG TABLET PO SCH (10:00)
[2019-09-27] MEDS ORDERED: FERRIC CARBOXYMALTOSE 750 MG in NORMAL SALINE 250 ML IV ONE (11:00)
--- NOTE | 2019-09-27 12:03 | PDOC PROGRESS REPORT ---
Subjective Progress Note for:: 09/27/19 Subjective:: TATUM SIMMONS is a 39 year old female who presented to the emergency room with a 4-day history of abdominal pain. She admits the gradual development and progressive worsening of right lower quadrant and right flank pain over the course of the last 4 days. Her pain has become moderately severe, constant and is of a sharp colicky nature. Her pain has been associated with obstipation and accompanied by a subjective fever. She denies other associated or accompanying signs and symptoms. She tried using Colace and Epsom salts for her obstipation at home without any improvement. She admits prior similar episodes with previous nephrolithiasis. She has not identified any aggravating or ameliorating factors for her abdominal pain. In the emergency room she was found to have a fever of 102.2 F, a heart rate of 105, a white blood count of 15,900 and mildly elevated liver function tests. A CT of her abdomen and pelvis revealed a sigmoid proctocolitis and a dilated appendix with periappendiceal inflammatory changes. The emergency room provider consulted Dr. Santiago for surgery who asked that the patient be admitted by the hospitalists, and he would further evaluate her in the morning. Patient was subsequently admitted to the medical floor for further evaluation and treatment. 09/26/2019. Saw patient this evening, in no apparent distress but unfortunately patient is crying and stating that she feels lonely, abdominal pain is improving, she is p.o. tolerant and has had some watery bowel movements, denies any fever, chills, chest pain, nausea, vomiting or any urinary symptoms. Patient stating that her family is in [place] and she feels very lonely when asked if she is depressed she says she is depressed but she has no homicidal or suicidal ideation. 09/27/2019. No acute events overnight. Patient had one nonbloody bowel movement since yesterday, abdominal pain is improving, denies any fever, chills, nausea, vomiting. Reason For Visit: ACUTE PROCTOCOLITIS,APPENDICEAL DILATATION WITH Physical Exam Vital Signs: Temp Pulse Resp BP Pulse Ox 98.2 F 72 14 102/55 L 100 09/27/19 08:36 09/27/19 08:36 09/27/19 08:36 09/27/19 08:36 09/27/19 08:36 Intake & Output 09/26/19 09/27/19 09/28/19 06:59 06:59 06:59 Intake Total 1050 2850 0 Balance 1050 2850 0 Weight 78 kg 78 kg General appearance: PRESENT: no acute distress, well-developed, well-nourished Head exam: PRESENT: atraumatic, normocephalic Respiratory exam: PRESENT: clear to auscultation stan. ABSENT: rales, rhonchi, wheezes Cardiovascular exam: PRESENT: RRR. ABSENT: diastolic murmur, rubs, systolic murmur GI/Abdominal exam: PRESENT: normal bowel sounds, soft. ABSENT: distended, guarding, mass, organolmegaly, rebound, tenderness Neurological exam: PRESENT: alert, awake, oriented to person, oriented to place, oriented to time, oriented to situation, CN II-XII grossly intact. ABSENT: mo tor sensory deficit Psychiatric exam: PRESENT: anxious, depressed Results Laboratory Results: 09/27/19 06:27 09/26/19 07:04 09/26/19 09/27/19 09/27/19 21:18 06:27 06:27 WBC 5.9 RBC 2.80 L Hgb 7.8 L Hct 23.2 L MCV 83 MCH 27.8 MCHC 33.5 RDW 18.7 H Plt Count 221 Retic Count (auto) 0.84 Iron 15.1 L TIBC 187 L % Saturation 8 Ferritin 82.50 Vitamin B12 910.0 Folate 3.70 Stool for White Cells MANY H Impressions: Abdomen/Pelvis CT 09/25/19 18:48 IMPRESSION: 1. Findings consistent with acute proctocolitis involving the sigmoid colon, which may be infectious or inflammatory in origin. 2. Fluid-filled colon suggestive of a diarrheal illness. 3. Mildly dilated appendix which is likely secondary to surrounding inflammation. Assessment and Plan - Diagnosis (1) Proctocolitis Is this a current diagnosis for this admission?: Yes Plan: Given history of recent chemoradiation for underlying cervical and colorectal cancer radiation-induced proctocolitis is a possibility, however infectious colitis could not be ruled out. CT abdomen positive for proctocolitis. Surgery has been consulted but no intervention is recommended, conservative management is recommended. Continue empiric IV antibiotics, monitor volume status and electrolytes replace as needed, stool culture, C. difficile toxin, stool WBC, stool ova and parasite. (2) Anemia Qualifiers: Anemia type: iron deficiency Qualified Code(s): D64.9 - Anemia, unspecified Is this a current diagnosis for this admission?: Yes Plan: Iron panel suggestive of iron deficiency anemia however ferritin is not too low. Likely due to underlying malignancy. Check stool guaiac. Monitor H&H, supportive transfusions. We will give 1 dose of Injectafer and DC on p.o. ferrous sulfate. (3) History of cervical cancer Is this a current diagnosis for this admission?: Yes Plan: Status post chemoradiation last chemoradiation in April 2019. Outpatient PCP and oncology follow-up. (4) History of colorectal cancer Is this a current diagnosis for this admission?: Yes Plan: Status post chemoradiation last chemoradiation in April 2019. Outpatient PCP and oncology follow-up. (5) Tobacco use disorder, continuous Is this a current diagnosis for this admission?: Yes Plan: Counseled on quitting. NicoDerm patch will be provided. (6) Depression Is this a current diagnosis for this admission?: Yes Plan: Denies any homicidal or suicidal ideation. Will start on Lexapro. Outpatient PCP follow-up. (7) UTI (urinary tract infection) Qualifiers: Urinary tract infection type: acute cystitis Is this a current diagnosis for this admission?: Yes Plan: Uncomplicated. Likely due to gram-negative rods including E. coli. Already receiving ceftriaxone for underlying proctocolitis. Follow urine culture. - Plan Summary Summary: Patient will be admitted to the medical floor where she will receive routine supportive and symptomatic cares. Dr. Santiago has been consulted by the emergency room provider and will see the patient in the morning. She will be kept n.p.o. after midnight. She will receive IV fluids utilizing D5 LR at 167 mL/h. She will receive IV antibiotics utilizing cefepime 2 g IV every 12 hours. She will receive morphine sulfate 2 to 4 mg IV every 2 hours as needed for pain. She will receive Ativan 1 mg IV every 4 hours as needed for anxiety or restlessness. CBCs, metabolic profiles, liver function tests, magnesium levels and additional laboratory and/or radiographic evaluations will be obtained as appropriate. Smoking cessation is advised and counseled briefly at the bedside. A nicotine replacement patch is available for the patient's use, if desired. - Time Time Spent with patient: 25-34 minutes Medications reviewed and adjusted accordingly: Yes Anticipated Discharge Disposition: Home, Self Care Anticipated Discharge Timeframe: within 24 hours
[2019-09-27 16:04] VITALS: BP 114/60
--- NOTE | 2019-10-01 14:34 | Left Against Medical Advice ---
Against Medical Advice Admission Date/Time: 09/25/19 22:35 Primary Care Provider: Date of Patient Emigration: 09/27/19 - Diagnosis: (1) Proctocolitis Is this a current diagnosis for this admission?: Yes (2) Anemia Is this a current diagnosis for this admission?: Yes (3) History of cervical cancer Is this a current diagnosis for this admission?: Yes (4) History of colorectal cancer Is this a current diagnosis for this admission?: Yes (5) Tobacco use disorder, continuous Is this a current diagnosis for this admission?: Yes (6) Depression Is this a current diagnosis for this admission?: Yes (7) UTI (urinary tract infection) Is this a current diagnosis for this admission?: Yes - Summary: Summary: Please see Admission and Progress Notes as well. TATUM SIMMONS is a 39 F, who LEFT AGAINST MEDICAL ADVICE. The Patient was admitted on 09/25/19 22:35. Unfortunately patient left AMA. TATUM SIMMONS is a 39 year old female who presented to the emergency room with a 4-day history of abdominal pain. She admits the gradual development and progressive worsening of right lower quadrant and right flank pain over the course of the last 4 days. Her pain has become moderately severe, constant and is of a sharp colicky nature. Her pain has been associated with obstipation and accompanied by a subjective fever. She denies other associated or accompanying signs and symptoms. She tried using Colace and Epsom salts for her obstipation at home without any improvement. She admits prior similar episodes with pre vious nephrolithiasis. She has not identified any aggravating or ameliorating factors for her abdominal pain. In the emergency room she was found to have a fever of 102.2 F, a heart rate of 105, a white blood count of 15,900 and mildly elevated liver function tests. A CT of her abdomen and pelvis revealed a sigmoid proctocolitis and a dilated appendix with periappendiceal inflammatory changes. The emergency room provider consulted Dr. Santiago for surgery who asked that the patient be admitted by the hospitalists, and he would further evaluate her in the morning. Patient was subsequently admitted to the medical floor for further evaluation and treatment. (1) Proctocolitis Given history of recent chemoradiation for underlying cervical and colorectal cancer radiation-induced proctocolitis is a possibility, however infectious colitis could not be ruled out. CT abdomen positive for proctocolitis. Surgery has been consulted but no intervention is recommended, conservative management is recommended. Continue empiric IV antibiotics, monitor volume status and electrolytes replace as needed, stool culture, C. difficile toxin, stool WBC, stool ova and parasite. (2) Anemia Iron panel suggestive of iron deficiency anemia however ferritin is not too low. Likely due to underlying malignancy. Check stool guaiac. Monitor H&H, suppor tive transfusions. We will give 1 dose of Injectafer and DC on p.o. ferrous sulfate. (3) History of cervical cancer Status post chemoradiation last chemoradiation in April 2019. Outpatient PCP and oncology follow-up. (4) History of colorectal cancer Status post chemoradiation last chemoradiation in April 2019. Outpatient PCP and oncology follow-up. (5) Tobacco use disorder, continuous Counseled on quitting. NicoDerm patch will be provided. (6) Depression Denies any homicidal or suicidal ideation. Will start on Lexapro. Outpatient PCP follow-up. (7) UTI (urinary tract infection) Uncomplicated. Likely due to gram-negative rods including E. coli. Already receiving ceftriaxone for underlying proctocolitis. Follow urine culture.
== END 2019-09-27 18:12 | disposition home or self-care (01) | DRG 394 ==
LOC: ER 17:27 → EH 22:35 → 4N 09-26 00:24
PROVIDERS: ADMIT Emergency Medicine; ATTEND Internal Medicine
DX: K52.0 Gastroenteritis and colitis due to radiation (principal); N39.0 Urinary tract infection, site not specified; A09 Infectious gastroenteritis and colitis, unspecified; Y84.2 Radiological procedure and radiotherapy as the cause of abnormal reaction of the patient, or of later complication, without mention of misadventure at the time of the procedure; D63.0 Anemia in neoplastic disease; F32.9 Major depressive disorder, single episode, unspecified; B96.20 Unspecified Escherichia coli [E. coli] as the cause of diseases classified elsewhere; F17.210 Nicotine dependence, cigarettes, uncomplicated; R50.81 Fever presenting with conditions classified elsewhere; Z60.2 Problems related to living alone; Z85.41 Personal history of malignant neoplasm of cervix uteri; Z85.038 Personal history of other malignant neoplasm of large intestine; Z92.21 Personal history of antineoplastic chemotherapy; Z82.49 Family history of ischemic heart disease and other diseases of the circulatory system; Z80.9 Family history of malignant neoplasm, unspecified
CPT/HCPCS: 36415; 74177; 80053; 81001; 82150; 82607; 82728; 82746; 83540; 83550; 83605; 83690; 83735; 84443; 84703; 85025; 85027; 85045; 87040; 87045; 87086; 87088; 87177; 87205; 87324; 87449; 89055; 96361; 96365; 96375; 99285; J0692; J1439; J1644; J1885; J2060; J2270; J2543; J3480; J3490; J7050; J7060; J7120; J7121; S0028